=== PATIENT | female | born 1965 | race Caucasian/White ===

== ENCOUNTER 2017-10-04 03:17 | Day surgery (SDC) | payer SELFPAY ==
[~2017-10-04] VITALS: Ht 160 cm; Wt 75.7 kg
[2017-10-04] MEDS ORDERED: ANCEF 1 GM/50 ML D5W IV ONE ×2 (04:30)
[2017-10-04] MEDS ORDERED: ACETAMINOPHEN ES 500 MG TABLET PO ONE (04:30)
== END 2017-10-04 05:12 | disposition home health service (06) ==
LOC: DS 03:17
PROVIDERS: ATTEND Specialist
DX: Z75.3 Unavailability and inaccessibility of health-care facilities (principal)
CPT/HCPCS: J0690; J7060